=== PATIENT | female | born 1980 | race Asian ===

== ENCOUNTER 2017-11-26 20:36 | Emergency (ER) | payer OTHER ==
[~2017-11-26] VITALS: Ht 165.1 cm; Wt 54.4 kg
[2017-11-26] MEDS ORDERED: NORCO 5-325 TA1 EAC1 PO (20:57)
[2017-11-26] MEDS ORDERED: PENICILLIN VK500 M1 PO (20:57)
[2017-11-26 21:22] VITALS: BP 124/69
== END 2017-11-26 21:28 | disposition home or self-care (01) ==
LOC: M.ERS 20:36
DX: K02.9 Dental caries, unspecified (principal)

== ENCOUNTER 2018-04-04 03:06 | Inpatient (IN) | payer OTHER ==
[~2018-04-04] VITALS: Ht 152.4 cm; Wt 54.4 kg
[~2018-04-04 03:06] MED LIST: NORCO 5-325 TA1 EAC1 PO; PENICILLIN VK500 M1 PO
[2018-04-04 03:19] VITALS: BP 106/69
[2018-04-04 04:01] LABS: HEMATOCRIT 34.5 % (37.0-47.0); HEMOGLOBIN 11.5 gm/dL (12.0-15.0); MCH 27.2 pg (26.0-34.0); MCHC 33.3 g/dL (28.0-37.0); MCV 81.6 fL (80.0-100.0); NUCLEATED RBCS 0 /100WBC; PLATELET COUNT* 206 thou/uL (150-400); RBC 4.23 mil/uL (4.20-5.00)
[2018-04-04 04:08] LABS: CREATININE 0.8 mg/dL (0.6-1.3); POTASSIUM 3.3 mmol/L (3.5-5.1)
[2018-04-04 04:13] LABS: ALBUMIN 3.1 g/dL (3.4-5.0); TOTAL BILIRUBIN 0.7 mg/dL (<0.1-1.0); TOTAL PROTEIN 7.9 g/dL (6.4-8.2)
[2018-04-04 04:19] LABS: URINE BILIRUBIN NEGATIVE (Negative); URINE BLOOD NEGATIVE (Negative); URINE CLARITY CLEAR; URINE COLOR YELLOW; URINE GLUCOSE-RANDOM TRACE (Negative); URINE KETONES NEGATIVE (Negative); URINE LEUKOCYTES-REFLEX 1+ (Negative); URINE NITRITE-REFLEX NEGATIVE (Negative); URINE PROTEIN NEGATIVE (Negative); URINE UROBILINOGEN 0.2 E.U./dl (0.2-1.0)
[2018-04-04 05:25] LABS: SQUAMOUS 4-10 Moderate /LPF (0-3)
[2018-04-04 05:26] LABS: CASTS None Seen /LPF (None Seen); CRYSTALS None Seen /LPF (None Seen); MUCUS 4-6 Moderate strn/LPF (None Seen); URINE RBC 0-2 Rare /HPF (0-2)
[2018-04-04 05:50] LABS: ABSOLUTE MONOCYTES 0.8 thou/uL (0.0-1.2); ABSOLUTE NEUTROPHILS 10.2 thou/uL (1.6-8.1); ANISOCYTOSIS 1+; PLATELET ESTIMATE ADEQUATE; POIKILOCYTOSIS 1+
[2018-04-04 06:50] VITALS: BP 82/41
[2018-04-04 07:30] VITALS: BP 86/43
[2018-04-04 11:56] VITALS: BP 90/49
[2018-04-04 13:14] LABS: MAGNESIUM 1.6 mg/dL (1.8-2.4); PHOSPHORUS* 2.5 mg/dL (2.5-4.9)
--- NOTE | 2018-04-04 14:15 | NUR ---
PT ADMITTED WITH PYELONEPHRITIS. PT IS ALERT AND ORIENTED. PT IS ON RA. PULSES 2+. PT C/O PAIN IN BACK, IV FENTANYL GIVEN FOR PAIN. PT HAS LOW BLOOD PRESSURE, 86/43, NS RUNNING AT 100 IN RT. WRIST. BP INCREASED TO 90/49. PT IS CURRENTLY NPO, LABS DRAWN. FALL RISK PRECAUTIONS IN PLACE. WILL CONTINUE TO MONITOR.
[2018-04-04 14:31] LABS: APTT 32.9 Seconds (25.0-31.3); PROTIME 10.5 Seconds (9.20-11.50)
[2018-04-04 16:22] VITALS: BP 126/65
--- NOTE | 2018-04-04 17:29 | NUR ---
PT REMAINED ALERT AND ORIENTED THIS SHIFT. PT C/O PAIN, IV FENTANYL GIVEN WITH PARTIAL PAIN RELIEF. PT IS FEBRILE, PO TYLENOL GIVEN TO REDUCE 100.4 DEGREE TEMP. DIET CHANGED TO CLR LIQUIDS AND ADVANCE TOLERATED. FALL RISK PRECAUTIONS IN PLACE. HOURLY ROUNDING COMPLETED. WILL CONTINUE TO MONITOR. ELECTROLYTE PROTOCOL FOLLOWED, 2 DOSES PO POTASSIUM GIVEN FOR 3.3 LEVEL, LAB REDRAW AT 1930.
[2018-04-04 21:04] VITALS: BP 114/59
[2018-04-05 04:24] LABS: HEMATOCRIT 31.5 % (37.0-47.0); HEMOGLOBIN 10.4 gm/dL (12.0-15.0); MCH 27.2 pg (26.0-34.0); MCV 82.6 fL (80.0-100.0); MPV 9.2 fl. (7.2-11.1); RBC 3.81 mil/uL (4.20-5.00); RDW-CV 13.2 % (10.5-14.5); WBC 8.9 thou/uL (4.0-11.0)
[2018-04-05 04:56] LABS: ALBUMIN 2.4 g/dL (3.4-5.0); CALCIUM 7.8 mg/dL (8.5-10.1); CREATININE 0.7 mg/dL (0.6-1.3); MAGNESIUM 2.3 mg/dL (1.8-2.4); POTASSIUM 4.1 mmol/L (3.5-5.1); TOTAL BILIRUBIN 0.4 mg/dL (<0.1-1.0); TOTAL PROTEIN 6.2 g/dL (6.4-8.2)
--- NOTE | 2018-04-05 05:08 | NUR ---
ASSUMED CARE OF PATIENT AFTER REPORT AT APPROX 1940. ALERT AND OREINTED X4. ASSESSMENT COMPLETED AND CHARTED. VSS ON ROOM AIR. NO COMPLAINTS OF SOA. PAIN HAS BEEN MANAGED WITH IV MEDICATION. NAUSEA PROGRESSED TO VOMITING, CALLED MANAGER PRACTICE PHYSICIAN FOR [facility], AWAITING PHARMACY APPROVAL TO GIVE. ELECTROLYTES REPLACED AND LABS REDRAWN WITH VALUES WNL. FLUIDS INFUSED ORDERED. PATIENT WAS FEBRILE UPON INITIAL ASSESSMENT WITH TEMP OF 101.1, TYLENOL GIVEN AND TEMP REDUCED TO 98.8. HOURLY ROUNDS MAINTAINED, CALL LIGHT WITHIN REACH. PATIENT EDUCATED ON FALL PREVENTION AND INSTRUCTED TO USE CALL LIGHT FOR NEEDS, PATIENT VERBALIZES UNDERSTANDING. NURSING WILL CONTINUE TO MONITOR.
[2018-04-05 08:39] VITALS: BP 113/54
[2018-04-05 12:01] VITALS: BP 100/60
[2018-04-05 16:00] VITALS: BP 105/66
--- NOTE | 2018-04-05 16:52 | NUR ---
PT REMAINED ALERT AND ORIENTED THIS SHIFT. PT WAS FEBRILE THIS MORNING, GAVE TYLENOL AND FEVER WENT AWAY, TEMP. IS 98.8. PT C/O PAIN, FENTANYL GIVEN ORDERED. PT STATED THEY HAD NOT HAD A BOWEL MOVEMENT IN A COUPLE OF DAYS, MILK OF MAGNESIUM AND COLACE ORDERED. IV ANTIBIOTIC RUNNING IN RT WRIST. HOURLY ROUNDING COMPLETED. WILL CONTINUE TO MONITOR.
[2018-04-05 21:30] VITALS: BP 106/61
[2018-04-06 00:59] VITALS: BP 90/51
[2018-04-06 04:30] VITALS: BP 106/62
[2018-04-06 04:45] LABS: HEMOGLOBIN 9.5 gm/dL (12.0-15.0); MCH 27.9 pg (26.0-34.0); MCV 82.1 fL (80.0-100.0); MPV 8.8 fl. (7.2-11.1); RBC 3.41 mil/uL (4.20-5.00); RDW-CV 13.1 % (10.5-14.5); WBC 5.7 thou/uL (4.0-11.0)
[2018-04-06 05:16] LABS: ALBUMIN 2.2 g/dL (3.4-5.0); CALCIUM 7.7 mg/dL (8.5-10.1); CREATININE 0.7 mg/dL (0.6-1.3); POTASSIUM 3.7 mmol/L (3.5-5.1); TOTAL BILIRUBIN 0.3 mg/dL (<0.1-1.0); TOTAL PROTEIN 6.3 g/dL (6.4-8.2)
--- NOTE | 2018-04-06 06:06 | NUR ---
ALERT AND ORIENTED X4. UP WITH STAND BY ASSIST TO BATHROOM. CONTINUES ON IVF AND IV ANTIBIODICS. USING IV PAIN MEDICATION AND IV NAUSEA MEDICATION TO HELP WITH PAIN AND NAUSEA. CALL LIGHT WITHIN REACH.
[2018-04-06 08:00] VITALS: BP 111/62
[2018-04-06 16:00] VITALS: BP 109/69
--- NOTE | 2018-04-06 17:34 | NUR ---
PATIENT ALERT AND ORIENTED X 4. VITAL SIGNS STABLE ON ROOM AIR. UP AD OZ IN ROOM. PAIN AND NAUSEA BEING MANAGED WITH MEDICAITON. NOT TOLERATING DIET WELL. IV PATENT WITH FLUIDS INFUSING. PATIENT HAS C/O HEADACHE ALL DAY THAT IS UNRESOLVED WITH TYLENOL. IBUPROFEN ORDERED PER DR. POWERS. HOURLY ROUNDS MAINTAINED THROUGHOUT THE SHIFT. CALL LIGHT WITHIN REACH. NURSING WILL CONTINUE TO MONITOR.
[2018-04-07 04:31] LABS: HEMATOCRIT 26.2 % (37.0-47.0); HEMOGLOBIN 8.8 gm/dL (12.0-15.0); MCH 27.7 pg (26.0-34.0); MCHC 33.6 g/dL (28.0-37.0); MCV 82.6 fL (80.0-100.0); RBC 3.18 mil/uL (4.20-5.00)
[2018-04-07 05:06] LABS: ALBUMIN 2.1 g/dL (3.4-5.0); CALCIUM 7.6 mg/dL (8.5-10.1); CREATININE 0.7 mg/dL (0.6-1.3); MAGNESIUM 1.8 mg/dL (1.8-2.4); TOTAL BILIRUBIN 0.2 mg/dL (<0.1-1.0); TOTAL PROTEIN 6.1 g/dL (6.4-8.2)
--- NOTE | 2018-04-07 06:23 | NUR ---
ALERT AND ORIENTED X4. UP AD OZ IN ROOM. PAIN MEDICATION GIVEN AT BEDTIME AND PATIENT FOUND RESTING QUIETLY ON ROUNDS THROUGHOUT NIGHT. IVF INFUSING WITHOUT DIFFICULTY. CONTINUES ON IV ANTIBIODICS. CALL LIGHT WITHIN REACH
[2018-04-07 08:30] VITALS: BP 120/70
[2018-04-07 15:55] VITALS: BP 109/69
[2018-04-07] MEDS ORDERED: COLACE100 MG PO (16:03)
[2018-04-07] MEDS ORDERED: AUGMENTIN400 MG/53 PO (16:04)
--- NOTE | 2018-04-07 16:20 | NUR ---
DR. POWERS PLACED DISCHARGE ORDERS. GIO NOTIFIED THAT INFECTIOUS DISEASE HAD NOT SIGNED OFF, HE STATED "NOT NECESSARY AT THIS TIME." DISCHARGE ORDERS REVIEWED AND WORKING ON PATIENT'S DISCHARGE AT THIS TIME.
--- NOTE | 2018-04-07 17:03 | NUR ---
PATIENT DISCHARGED FROM UNIT AT 1700. ALERT AND ORIENTED X 4. VITAL SIGNS STABLE. AFEBRILE. UP AD OZ IN ROOM. IV DISCONTINUED. PAIN MANAGED WITH PO MEDICATION. DENIES NAUSEA AT THIS TIME. DISCHARGE INSTRUCTIONS, SCRIPT, AND MEDICATION INFORMATION GIVEN TO PATIENT. LEFT WITH ALL BELONGINGS. PATIENT LEFT WITH VIA CAR.
[2018-04-07 17:05] VITALS: BP 109/69
--- NOTE | 2018-04-08 07:55 | CON ---
[address] [address] CONSULTATION Name: POORNIMA DIOR Room: [address]#: [id number] Admission: 04/04/18 Attend Phys: Joyce Dickey MD Discharge: 04/07/18 Date of : 84 Report #: [id number] THIS REPORT FOR: //name// CC: [facility] physician/PCP Joyce Dickey DATE OF SERVICE: 04/05/2018 INFECTIOUS DISEASE CONSULTATION ATTENDING PHYSICIAN: Boom Mckoy M.D. REASON FOR EVALUATION: Pyelonephritis. HISTORY OF PRESENT ILLNESS: Chart reviewed, the patient examined. This is a 37-year-old female without significant medical history, who has presented through the Emergency Room with roughly 3-day history of burning with urination and developed a fairly significant abdominal and bilateral flank pain, generalized myalgias, arthralgias and also was having fevers, which was confirmed to be 103.3. Emergency Room evaluation noted moderate pyuria and moderate bacteriuria. CT abdomen and pelvis has a question of cystitis and right pyelonephritis, does have cholelithiasis as well. She was empirically started on antimicrobials, specifically piperacillin/tazobactam as well as levofloxacin. She is still pretty uncomfortable at this point and she has a poor appetite, p.o. intake. She has had constipation as well and headache as particular risk factors. It is clear that she has had previous urinary tract infection. ALLERGIES: None known. MEDICATIONS: Include Zosyn, levofloxacin, ondansetron, enoxaparin, p.r.n. analgesics and antiemetics. PAST MEDICAL HISTORY: She was evaluated in the Emergency Room earlier this year with some dental pain and was unremarkable. SOCIAL HISTORY: Nonsmoker, no ethanol, no illicit drug use. FAMILY HISTORY: Noncontributory. REVIEW OF SYSTEMS: Remainder of the 10-point review of systems is otherwise unremarkable, with the exception of noted in the history of present illness. PHYSICAL EXAMINATION: GENERAL: She does appear ill, not overtly toxic. She is not encephalopathic. [place] [address] CONSULTATION Name: POORNIMA DIOR Kp Room: [address]#: [id number] Admission: 04/04/18 Attend Phys: Joyce Dickey MD Discharge: 04/07/18 Date of : 84 Report #: [id number] VITAL SIGNS: Temperature 98.1 with a T-max of 103.3, pulse 89, respirations 16 and blood pressure 113/54. SKIN: Warm, dry. There are no rashes. HEENT: Extraocular muscles intact. There are no oral lesions. NECK: Supple. LUNGS: Clear to auscultation. HEART: Regular rate. I do not appreciate a murmur. ABDOMEN: Soft, nontender and nondistended. LOWER EXTREMITIES: No edema. GENITOURINARY: Deferred. RECTAL: Deferred. LABORATORY DATA: Blood cultures sterile thus far. Lactic acid initially was 1.1, repeat was 0.7 and 0.9 respectively. Initial electrolytes, sodium 135, potassium 3.3, chloride 101, bicarbonate 24, anion gap of 10 and BUN and creatinine 10 and 0.8. LFTs were unremarkable. Albumin of 3.1. Total protein of 7.9. Estimated GFR of 82. UCG was negative. Urinalysis showed 16-25 white cells, 0-2 red cells, 10-30 bacteria and no casts seen. CBC: White count 4.0, H and H 11.5 and 34.5 and platelets of 206,000. CT abdomen and pelvis as described above. Chest x-ray, nothing acute. Blood cultures are sterile thus far. ASSESSMENT AND PLAN: Pyelonephritis without structural evident complication. No obstructive uropathy. We will continue therapy, presumptive gram-negative etiology. Await those culture results. At this point, she is quite symptomatic. We will try to control her pain. She is having constipation and that may give her some relief as well if that is treated. I do not think I would do additional diagnostic testing, other than what has been initiated already. We will see how she does clinically over the next 24-48 hours. I presume we could get her on oral therapy. <ELECTRONICALLY SIGNED> By: Ethan Veloz MD 04/08/18 [id number] Veloz MD /nt
== END 2018-04-07 17:00 | disposition home or self-care (01) | DRG 871 ==
LOC: M.ERS 03:06 → M.ORTHSURG 06:26 → M.TBA-ER 06:26 → M.ORTHSURG 07:02
PROVIDERS: Emergency Medicine Emergency Medical Services; Family Medicine; ADMIT Internal Medicine
DX: A41.9 Sepsis, unspecified organism (principal); E43 Unspecified severe protein-calorie malnutrition; N10 Acute pyelonephritis; K80.20 Calculus of gallbladder without cholecystitis without obstruction; E87.6 Hypokalemia; N85.2 Hypertrophy of uterus; E83.42 Hypomagnesemia; D64.9 Anemia, unspecified; Z68.23 Body mass index [BMI] 23.0-23.9, adult

== ENCOUNTER 2018-04-19 12:44 | Emergency (ER) | payer OTHER ==
[~2018-04-19] VITALS: Ht 152.4 cm; Wt 54.4 kg
[~2018-04-19 12:44] MED LIST changes: +AUGMENTIN400 MG/53 PO; +COLACE100 MG PO
[2018-04-19 13:11] LABS: URINE BILIRUBIN NEGATIVE (Negative); URINE BLOOD NEGATIVE (Negative); URINE CLARITY CLEAR; URINE COLOR YELLOW; URINE GLUCOSE-RANDOM NEGATIVE (Negative); URINE KETONES NEGATIVE (Negative); URINE LEUKOCYTES-REFLEX NEGATIVE (Negative); URINE NITRITE-REFLEX NEGATIVE (Negative); URINE PROTEIN NEGATIVE (Negative); URINE UROBILINOGEN 0.2 E.U./dl (0.2-1.0)
[2018-04-19 14:24] LABS: HEMOGLOBIN 12.6 gm/dL (12.0-15.0); MCH 27.2 pg (26.0-34.0); MCHC 33.3 g/dL (28.0-37.0); MCV 81.9 fL (80.0-100.0); MPV 10.7 fl. (7.2-11.1); NUCLEATED RBCS 0 /100WBC; RBC 4.64 mil/uL (4.20-5.00); RDW-CV 13.3 % (10.5-14.5); WBC 4.8 thou/uL (4.0-11.0)
--- NOTE | 2018-04-19 14:24 | EKG ---
[place] [address] ELECTROCARDIOGRAM REPORT Name: OVIPOORNIMA Cordova Kp Room: [facility]#: [id number] Admission: 04/19/18 Attend Phys: Discharge: Date of : 84 Report #: [id number] THIS REPORT FOR: //name// [facility] ED Test Date: 2018-04-19 Test Time: 13:47:31 Pat Name: POORNIMA DIOR Department: Room: Gender: F Binman: Storm REBOLLEDO : 1980 Requested By: Rowena Thomas Order Number: [id number] MD: Maycol Milner Measurements Intervals [place] Rate: 64 P: 51 FL: 152 QRS: 45 QRSD: 89 T: 34 QT: 413 QTc: 426 Interpretive Statements Sinus rhythm Baseline wander in lead(s) III,aVF,V4 No previous ECG available for comparison Electronically Signed On 04-19-2018 14:24:38 [employer]IST[employer]S MODEL by Maycol Milner [email or web address] <ELECTRONICALLY SIGNED> By: Maycol Milner MD, [facility] 04/19/18 1424 1347 1347 Maycol Milner MD, FACC /EPI
[2018-04-19 14:52] LABS: ABSOLUTE LYMPHOCYTES 1.8 thou/uL (0.8-5.3); ABSOLUTE NEUTROPHILS 2.4 thou/uL (1.6-8.1); LYMPHOCYTES 38.4 %; POLYS 49.9 %
[2018-04-19 14:53] LABS: ABSOLUTE EOSINOPHILS 0.2 thou/uL (0.0-0.7); ABSOLUTE MONOCYTES 0.3 thou/uL (0.0-1.2); EOSINOPHILS 4.7 %
[2018-04-19 14:55] LABS: PLATELET COUNT* 143 thou/uL (150-400)
[2018-04-19 15:57] LABS: CREATININE 0.7 mg/dL (0.6-1.3); POTASSIUM 3.9 mmol/L (3.5-5.1)
[2018-04-19 16:01] LABS: ALBUMIN 3.6 g/dL (3.4-5.0); TOTAL BILIRUBIN 0.3 mg/dL (<0.1-1.0); TOTAL PROTEIN 8.9 g/dL (6.4-8.2)
[2018-04-19] MEDS ORDERED: ONDANSETRON HCL4 M2 PO (16:45)
[2018-04-19] MEDS ORDERED: BENTYL 20 MG TA20 M1 PO (16:45)
[2018-04-19 17:33] VITALS: BP 117/66
== END 2018-04-19 17:33 | disposition home or self-care (01) ==
LOC: M.ERS 12:44
PROVIDERS: Nurse Practitioner Family
DX: R10.11 Right upper quadrant pain (principal); R11.2 Nausea with vomiting, unspecified